=== PATIENT | female | born 2000 | race Native Hawaiian/Other Pacific Islander ===

== ENCOUNTER 2022-08-04 10:00 | Outpatient (CLI) | payer BC, SELFPAY | END 2022-08-04 10:01 | disposition home or self-care (01) | LOC: NFLDREF 10:02 | PROVIDERS: PCP Family Medicine; Visit Provider Obstetrics & Gynecology | DX: R30.0 Dysuria (principal) | CPT/HCPCS: 87086; 87186 ==

== ENCOUNTER 2022-10-24 13:41 | Outpatient (CLI) | payer BC, SELFPAY ==
[2022-10-24 15:46] LABS: Chloride* 106 mmol/L (96-114); Sodium* 141 mmol/L (135-149)
[2022-10-24 15:47] LABS: Potassium* 4.6 mmol/L (3.6-5.1)
[2022-10-24 15:49] LABS: Blood Urea Nitrogen* 13 mg/dL (5-24); Carbon Dioxide* 26 mmol/L (20-32); Creatinine* 0.7 mg/dL (0.5-1.5); Estimated Glomerular Filt Rate 127 ml/min
[2022-10-24 15:50] LABS: Calcium* 9.5 mg/dL (8.4-10.6); Glucose* 114 mg/dL (60-115)
== END 2022-10-24 13:42 | disposition home or self-care (01) ==
LOC: NFLDREF 13:43
PROVIDERS: PCP Family Medicine; Visit Provider Family Medicine
DX: E66.01 Morbid (severe) obesity due to excess calories (principal); Z68.43 Body mass index [BMI] 50.0-59.9, adult
CPT/HCPCS: 80048

== ENCOUNTER 2023-05-06 15:18 | Outpatient (CLI) | payer BC, SELFPAY ==
[2023-05-06 18:19] LABS: Chlamydia DNA Amplified* NOT DETECTED (No Detected); GC DNA Amplified* NOT DETECTED (No Detected)
== END 2023-05-06 15:19 | disposition home or self-care (01) ==
PROVIDERS: PCP Family Medicine; Visit Provider Obstetrics & Gynecology
DX: N92.0 Excessive and frequent menstruation with regular cycle (principal); N93.9 Abnormal uterine and vaginal bleeding, unspecified; Z11.3 Encounter for screening for infections with a predominantly sexual mode of transmission
CPT/HCPCS: 84443; 87491; 87591

== ENCOUNTER 2023-05-15 15:48 | Outpatient (CLI) | payer BC, SELFPAY ==
--- NOTE | 2023-05-15 16:00 | CRLHL7_ITS ---
For Patients: As a result of the Century Cures Act, medical imaging exams and procedure reports are released immediately into your electronic medical record. You may view this report before your referring provider. If you have questions, please contact your health care provider. CLINICAL HISTORY: excessive and frequent menstruation TECHNIQUE: 2D wolf scale and color Doppler images were acquired of the pelvis using a transvaginal approach. FINDINGS: On transvaginal imaging, the myometrium has a normal uniform echotexture. The uterus measures 6.3 x 3.4 x 3.5 cm. Cervical nabothian cysts noted. The endometrial lining measures 12 mm in thickness. The left ovary is not visualized and the right ovary measures 3.5 x 2.1 x 2.6 cm. The right ovary demonstrates normal arterial and venous blood flow on color Doppler analysis. There are no suspicious fluid collections within the cul-de-sac. IMPRESSION: Endometrial thickness 1.2 cm. No endometrial fluid. No uterine fibroid. Dictated by Melvin Hairston MD @ 05/18/2023 9:08:19 AM (Electronically Signed)
== END 2023-05-15 15:49 | disposition home or self-care (01) ==
PROVIDERS: PCP Family Medicine; Visit Provider Obstetrics & Gynecology
DX: N92.0 Excessive and frequent menstruation with regular cycle (principal); R93.89 Abnormal findings on diagnostic imaging of other specified body structures
CPT/HCPCS: 76830

== ENCOUNTER 2024-03-18 02:02 | Emergency (ER) | payer OTHER, SELFPAY ==
[2024-03-18 02:08] VITALS: BP 134/73; PULSE 89; RESP 16; TEMP 36.5; O2SAT 100; BMI 28.0
--- NOTE | 2024-03-18 02:27 | ED_ITS ---
HPI - Extremity Injury (Lower) General Date Seen: 03/18/24 Chief Complaint: Extremity Pain/Injury, Lower Stated Complaint: Pain- L knee Time Seen by Provider: 03/18/24 02:16 Source: patient Mode of arrival: ambulatory Limitations: no limitations History of Present Illness HPI Narrative: Patient is a 23-year-old female with history of surgery to each of her kneecaps who presents with an injury to her left knee that occurred two weeks ago. She was running up a flight of stairs and fell landing on the knee. There is initially some swelling and bruising but for several days she has been able to get by with ice and ibuprofen. Over the past 7-10 days she has had increasing locking and buckling of the knee. It is and becoming more painful to ambulate and the knee feels unstable. It continues to be swollen and tender. But she is currently uninsured but expects to get health insurance within the next couple of weeks. Related Data Home Medications ?Medication ?Instructions ?Recorded ?Confirmed albuterol sulfate 2.5 mg/3 mL 2.5 mg continuous nebulization Q4H 08/12/23 12/25/23 (0.083 %) solution for nebulization PRN bronchospasm cyanocobalamin (vitamin B-12) mcg IM 08/12/23 12/25/23 1,000 mcg/mL injection solution Previous Rx's ?Medication ?Instructions ?Recorded adapalene 0.1 % topical cream 1 applic topical QHS #45 grams 10/24/22 albuterol sulfate 90 mcg/actuation 2 puff inhalation Q4-6H PRN 10/24/22 aerosol inhaler shortness of breath or wheezing #8.5 grams albuterol sulfate 90 mcg/actuation 2 puff inhalation Q6H PRN 08/13/23 aerosol inhaler shortness of breath or wheezing #8.5 grams hydrocodone 5 mg-acetaminophen 325 1 tab PO Q6H PRN pain #10 tabs 03/18/24 mg tablet Allergies Allergy/AdvReac Type Severity Reaction Status Date / Time No Known Drug Allergies Allergy Verified 12/25/23 14:25 Review of Systems Narrative: Review of systems is outlined above otherwise noted to be negative. [facility] Medical History Cellulitis ?L03.90 - Cellulitis, unspecified (ICD-10) Mild intermittent asthma ?J45.20 - Mild intermittent asthma, uncomplicated (ICD-10) Morbid obesity with BMI of 50.0-59.9, adult ?E66.01 - Morbid (severe) obesity due to excess calories (ICD-10) ?Z68.43 - Body mass index [BMI] 50.0-59.9, adult (ICD-10) Pes planus (04/13/13) ?M21.40 - Flat foot [pes planus] (acquired), unspecified foot (ICD-10) Acne vulgaris ?L70.0 - Acne vulgaris (ICD-10) Acanthosis nigricans (07/18/13) ?L83 - Acanthosis nigricans (ICD-10) Surgical History History of sleeve gastrectomy ?Z90.3 - Acquired absence of stomach [part of] (ICD-10) History of excision of mass (04/2016) ?Z98.890 - Other specified postprocedural states (ICD-10) History of knee surgery (~08/2019) ?Z98.890 - Other specified postprocedural states (ICD-10) History of knee surgery (~04/2019) ?Z98.890 - Other specified postprocedural states (ICD-10) Family History Diabetes Father Grandfather Social History Narrative: Single, no kids, senior residential counselor Angeli Carrion, nonsmoker, no EtOH What is your current living situation?: I presently have a place to live Problems where you live: no known problems In the past 12 months, utilities in danger of being shut off: no In past 12 months, lack of transportation kept you from medical appts, meetings, work, or getting things needed for daily living: no In the past 12 mos, have been you worried that your food would run out before you had money to buy more?: never true In the past 12 mos, the food you bought just didn't last and you didn't have money to buy more?: never true Smoking Status: Never smoker How often does anyone, including family, friends and others, physically hurt you : never How often does anyone, including family, friends and others, insult or talk down to you: never How often does anyone, including family, friends and others, threaten you with harm: never How often does anyone, including family, friends and others, scream or curse at you: never Little interest or pleasure in doing things: not at all Feeling down, depressed, or hopeless: not at all Exam Narrative: Exam Narrative: Vitals noted. Examination of the left knee shows her to have a small knee effusion. She has tenderness along the medial joint line. There is tenderness with stressing of the collateral ligaments but no laxity. Anterior drawer sign does seem lacks compared to the right side and there isn't a firm endpoint. No bony tenderness over the patella or proximal tibia. Const: Vital Signs, click to edit/add: Vital Signs - 24 hr 03/18/24 02:08 Temperature 97.7 F Pulse Rate [Pulse Oximeter] 89 Respiratory Rate 16 Blood Pressure [Ri ght Upper Arm] 134/73 Pulse Oximetry 100 Oxygen Delivery Me thod Room Air Course Course ED Course: Patient is seen and examined. X-ray is ordered. Reevaluation(s) Reevaluation #1: X-ray does not show fracture or disruption of her hardware. She has an immobilizer at home that she can use. Vital Signs Vital signs: Initial Vital Signs Temperature 97.7 F 03/18/24 02:08 Temperature Source Temporal Artery Scan 03/18/24 02:08 Pulse Rate 89 03/18/24 02:08 Respiratory Rate 16 03/18/24 02:08 Blood Pressure 134/73 03/18/24 02:08 Blood Pressure Mean 93 03/18/24 02:08 Blood Pressure Position Supine 03/18/24 02:08 Pulse Oximetry 100 03/18/24 02:08 Oxygen Delivery Method Room Air 03/18/24 02:08 Vital Signs Temperature 97.7 F 03/18/24 02:08 Pulse Rate 89 03/18/24 02:08 Respiratory Rate 16 03/18/24 02:08 Blood Pressure 134/73 03/18/24 02:08 Pulse Oximetry 100 03/18/24 02:08 Oxygen Delivery Method Room Air 03/18/24 02:08 Temperature 97.7 F 03/18/24 02:08 Pulse Rate 89 03/18/24 02:08 Respiratory Rate 16 03/18/24 02:08 Blood Pressure 134/73 03/18/24 02:08 Pulse Oximetry 100 03/18/24 02:08 Oxygen Delivery Method Room Air 03/18/24 02:08 Discharge Plan Discharge Clinical Impression: Left knee injury Patient Disposition: Home, Self-Care Condition: Stable Additional Instructions: Rest, ice, elevation. Tylenol 1000 mg every 6 hours as needed for pain. Hydrocodone one pill every 6 hours for refractory pain. Knee immobilizer for stability. We your insurance has kicked in please schedule follow-up visit with your PCP to discuss scheduling an MRI. Prescriptions: New hydrocodone-acetaminophen 5-325 mg tablet 1 tab PO Q6H PRN (Reason: pain) Qty: 10 0RF No Action albuterol sulfate 90 mcg/actuation HFA aerosol inhaler 2 puff inhalation Q4-6H PRN (Reason: shortness of breath or wheezing) Qty: 8.5 5RF albuterol sulfate 2.5 mg /3 mL (0.083 %) solution for nebulization 2.5 mg continuous nebulization Q4H PRN (Reason: bronchospasm) cyanocobalamin (vitamin B-12) 1,000 mcg/mL solution IM albuterol sulfate 90 mcg/actuation HFA aerosol inhaler 2 puff inhalation Q6H PRN (Reason: shortness of breath or wheezing) Qty: 8.5 2RF adapalene 0.1 % cream 1 applic topical QHS Qty: 45 5RF Follow Up/Referrals: Melvin Solomon MD [Primary Care Provider] - Stand Alone [facility]: [facility] Info Instructions
--- NOTE | 2024-03-18 02:27 | CRLHL7_ITS ---
For Patients: As a result of the Cures Act, medical imaging exams and procedure reports are released immediately into your electronic medical record. You may view this report before your referring provider. If you have questions, please contact your health care provider. INDICATION: Trauma, fall. Left knee pain. TECHNIQUE: Left knee 3 views. COMPARISON: None. FINDINGS: No acute fracture or dislocation. Fixation of the patella with 2 partially threaded cannulated screws, without evidence of hardware complications. No significant joint effusion. Joint spaces are maintained. Mild soft tissue swelling. IMPRESSION: No acute osseous abnormality. Dictated by Michael Sierra MD @ 03/18/2024 3:26:16 AM (Electronically Signed)
--- OUTSIDE RECORDS SUMMARY | 2024-03-18 02:53 | XMS_ITS | Encounter Summary ---
Author Organization [facility] Address [address] [place] [address] Care Team Providers Care Stock Manager Name Role Phone Genaro Sandoval MD Primary Care Provider Gerardo Dickerson MD Unavailable + Will Leija Unavailable [phone] Gerardo Dickerson MD Unavailable + Reason for Visit * Reason Onset Date Comments Orders 08/31/2019 PT orders Encounter Details Date Type Department Care Team (Late st Contact Info) Description 08/31/2019 Telephone [facility] [address] [address] Gerardo Dickerson MD [address] [place] [address] Orders (PT orders) Social History Tobacco Use Types Packs/Day Years Used Date Smoking Tobacco: Never Smokeless Tobacco: Never Alcohol Use Standard Drinks/Week Comments Not Currently 0 (1 standard drink = 0.6 oz pur e alcohol) PHQ-2 Answer Date Recorded PHQ-2 Score 0 08/15/2019 Sex and Gender Information Value Date Recorded Sex Assigned at Not on file Gender Identity Not on file Sexual Orientation Not on file documented as of this encounter Miscellaneous Notes * Telephone Encounter - Omar Tejada ATC - 08/31/2019 12:21 PM CST Faxed orders over to number provided D CROP HARVEST CONTRACTOR * Telephone Encounter - Fauzia Hunter - 08/31/2019 12:12 PM CST [facility] Phone Message May a detailed message be left on voicemail: yes Reason for Call: Order(s): Other: Reason for requested: PT orders sent to [facility] fax- [phone] Date needed: jacky Provider name: Action Taken: Message routed to: [facility] ortho D CROP HARVEST CONTRACTOR documented in this encounter Plan of Treatment Not on file documented as of this encounter Visit Diagnoses Not on filedocumented in this encounter Additional Health Concerns Assessment Noted Time PHQ-9 Depression Total Score: 0 08/15/20 12:22 PM FIELD CROP HARVEST CONTRACTOR documented as of this encounter Care Teams Stock Manager Relationship Specialty Start Date End Date Genaro Sandoval MD [facility] [address] [place] [address] PCP - General 05/16/13 Gerardo Dickerson MD [facility] [address] [place] [address] Orthopedics 12/18/15 Will Leija [facility] [address] [place] [address] 12/18/15 Gerardo Dickerson MD [address] [place] [address] Assigned Musculoskeletal Provider 08/03/20 05/11/21 documented as of this encounter
--- OUTSIDE RECORDS SUMMARY | 2024-03-18 02:53 | XMS_ITS | Clinical Summary ---
Author Organization [facility] Address [address] [place] [address] Care Team Providers Care Victims Advocate Clerk/Specialist Name Role Phone Genaro Sandoval MD Primary Care Provider [phone] Gerardo Dickerson MD Unavailable + Will Leija Unavailable [phone] Allergies No known active allergies Medications Medication Sig Dispensed Refills Start Date End Date Status ALBUTEROL INHALER 17GMIndications:An xiety,Acanthosis nigricans,Eating disorder,Childhood obesity Inhale into the lungs 3 times daily This product no longer available Active acetaminophen (TYLENOL) 500 MG tabletIndications: Closed displaced fracture of left patella, unspecified fracture morphology, initial encounter Take 2 tablets (1,000 mg) by mouth 3 times daily as needed for mild pain 1 Bottle 1 02/08/2019 Active Additional Information Patient not taking.Reported on 11/09/2019 ibuprofen (ADVIL/MOTRIN) 600 MG tabletIndications: Closed displaced fracture of left patella, unspecified fracture morphology, initial encounter Take 1 tablet (600 mg) by mouth every 6 hours 40 tablet 02/08/2019 Active Additional Information Patient not taking.Reported on 11/09/2019 order for DMEIndications:Urszula sed displaced fracture of left patella, unspecified fracture morphology, initial encounter Equipment being ordered: Crutches (E0114) Treatment Diagnosis: Impaired gait 1 each 02/08/2019 Active Additional Information Patient not taking.Reported on 11/09/2019 senna-docusate (SENOKOT-S/PERICOL ROCKY) 8.6-50 MG tabletIndications: Closed displaced fracture of left patella, unspecified fracture morphology, initial encounter Take 1-2 tablets by mouth daily as needed for constipation 20 tablet 08/17/2019 Active Additional Information Patient not taking.Reported on 11/09/2019 acetaminophen (TYLENOL) 325 MG tabletIndications: Right patella fracture Take 2 tablets (650 mg) by mouth every 4 hours 120 tablet 08/17/2019 Active Additional Information Patient not taking.Reported on 11/09/2019 oxyCODONE (ROXICODONE) 5 MG tabletIndications: Right patella fracture Take 1-2 tablets (5-10 mg) by mouth every 4 hours as needed for moderate to severe pain 30 tablet 08/17/2019 Active Additional Information Patient not taking.Reported on 11/09/2019 senna-docusate (SENOKOT-S/PERICOL ROCKY) 8.6-50 MG tabletIndications: Right patella fracture Take 1-2 tablets by mouth 2 times daily 30 tablet 08/17/2019 Active Additional Information Patient not taking.Reported on 11/09/2019 ondansetron (ZOFRAN-ODT) 4 MG ODT tabIndications:Rig ht patella fracture Take 1-2 tablets (4-8 mg) by mouth every 8 hours as needed for nausea 4 tablet 08/17/2019 Active Additional Information Patient not taking.Reported on 11/09/2019 oxyCODONE (ROXICODONE) 5 MG tabletIndications: Closed displaced fracture of left patella, unspecified fracture morphology, initial encounter Take 1 tablet (5 mg) by mouth every 4 hours as needed for moderate to severe pain 30 tablet 08/24/2019 Active Additional Information Patient not taking.Reported on 11/09/2019 Active Problems Problem Noted Date Diagnosed Date Right patella fracture 08/15/2019 Overview: Added automatically from request for surgery [id number] Chronic pain of right knee 08/15/2019 Overview: Added automatically from request for surgery [id number] Patellar fracture 02/07/2019 Patella fracture 02/07/2019 Anxiety 07/18/2013 Acanthosis nigricans 07/18/2013 Eating disorder 07/18/2013 Childhood obesity 07/18/2013 Hypertriglyceridemia 07/18/2013 Lower extremity weakness 07/18/2013 Social History Tobacco Use Types Packs/Day Years Used Date Smoking Tobacco: Never Smokeless Tobacco: Never Alcohol Use Standard Drinks/Week Comments Not Currently 0 (1 standard drink = 0.6 oz pur e alcohol) PHQ-2 Answer Date Recorded PHQ-2 Score 0 11/09/2019 Sex and Gender Information Value Date Recorded Sex Assigned at Not on file Gender Identity Not on file Sexual Orientation Not on file Last Filed Vital Signs Vital Sign Reading Time Taken Comments Blood Pressure 116/66 08/17/2019 8:00 PM MANAGER [employer] Pulse 97 08/17/2019 8:00 PM [employer]GER [employer] Temperature 36.7 ??C (98.1 ??F) 08/17/2019 8:00 PM CS T Respiratory Rate 11 08/17/2019 7:15 PM [employer]GER [employer] Oxygen Saturation 97% 08/17/2019 8:00 PM MA[employer]GER [employer] Inhaled Oxygen Concentration - - Weight 130 kg (286 lb 9.6 oz) 08/17/2019 12:21 P M [employer] Height 170.2 cm (5' 7) 08/17/2019 12:21 PM [employer] Body Mass Index 44.89 08/17/2019 12:21 PM [employer] Plan of Treatment Not on file Medical Devices Implanted Type Area Parole Or Probation Officer Device Identifier Shelf Expiration Date Model / Serial / Lot Imp Scr Syn Can 4.0x34mm Short Ss Implanted:Qty: 2 on 02/07/2019 by Gerardo Dickerson MD at [facility] Metallic Hardware/An chor Left: Patella SYNTHES-STRATEC [id number] / / Synthes1.25mm Non Threaded Guide Wire Implanted:Qty: 4 on 02/07/2019 by Gerardo Dickerson MD at [facility] Left: Patella SYN[employer]ES 900.721 / / Fiber Tape, 2mm Implanted:Qty: 1 on 08/17/2019 by Gerardo Dickerson MD at [facility] Right: Patella [employer] 01/10/2024 [id number] / / [id number] - 04mm Blunt Tip Cannulated Lag Screw Implanted:Qty: 1 on 08/17/2019 by Gerardo Dickerson MD at [facility] Right: Patella [employer] [id number] 0 / / 38mm - 04mm Blunt Tip Cannulated Lag Screw Implanted:Qty: 1 on 08/17/2019 by Gerardo Dickerson MD at [facility] Right: Patella [employer] AR-[id number] 8 Care Teams Victims Advocate Clerk/Specialist Relationship Specialty Start Date End Date Genaro Sandoval MD [facility] [address] [place] [address] PCP - General 05/16/13 Gerardo Dickesron MD [facility] [address] [place] [address] Orthopedics 12/18/15 Will Leija [facility] [address] [place] [address] 12/18/15
--- OUTSIDE RECORDS SUMMARY | 2024-03-18 02:53 | XMS_ITS | Encounter Summary ---
Author Organization [facility] Address [address] [place] [address] Care Team Providers Care Elevator Examiner And Adjuster Name Role Phone Genaro Sandoval MD Primary Care Provider [phone] Gerardo Dickerson MD Unavailable + Will Leija Unavailable [phone] Gerardo Dickerson MD Unavailable + Reason for Visit * Reason Onset Date Comments *-*INCOMING RECORDS*-* 08/15/2019 Encounter Details Date Type Department Care Team (Late st Contact Info) Description 08/15/2019 PRE VISIT [facility] [address] [place] [phone] Gerardo Dickerson MD [address] [place] [address] *-*INCOMING RECORDS*-* Social History Tobacco Use Types Packs/Day Years Used Date Smoking Tobacco: Never Assessed PHQ-2 Answer Date Recorded PHQ-2 Score 0 08/15/2019 Sex and Gender Information Value Date Recorded Sex Assigned at Not on file Gender Identity Not on file Sexual Orientation Not on file documented as of this encounter Miscellaneous Notes * Telephone Encounter - Karo Briones CMA - 08/15/2019 8:50 AM CST RECORDS [facility]CEIVED FROM[facility] DATE RECEIVED: Aug 15, 2019 NOTES STATUS DETAILS OFFICE NOTE from referring provider Gerardo Johnson, MD OFFICE NOTE from other specialist N/A DISCHARGE SUMMARY from hospital N/A DISCHARGE REPORT from the ER Internal OPERATIVE REPORT N/A MEDICATION LIST Internal IMPLANT RECORD/STICKER N/A LABS CBC/DIFF N/A CULTURES N/A INJECTIONS DONE IN RADIOLOGY N/A MRI N/A CT SCAN N/A XRAYS (IMAGES & REPORTS) Internal TUMOR PATHOLOGY Slides & report N/A 08/15/19 8:51 AM Pre-visit complete Karo Briones CMA ER PARENT documented in this encounter Plan of Treatment Not on file documented as of this encounter Visit Diagnoses Not on filedocumented in this encounter Additional Health Concerns Assessment Noted Time PHQ-9 Depression Total Score: 0 08/15/20 19 12:22 PM FOSTER PARENT documented as of this encounter Care Teams Elevator Examiner And Adjuster Relationship Specialty Start Date End Date Genaro Sandoval MD [facility] [address] [place] [address] PCP - General 05/16/13 Gerardo Dickerson MD [facility] [address] [place] [address] Orthopedics 12/18/15 Will Leija [facility] [address] [place] [address] 12/18/15 Gerardo Dickerson MD [address] [place] [address] Assigned Musculoskeletal Provider 08/03/20 05/11/21 documented as of this encounter
--- OUTSIDE RECORDS SUMMARY | 2024-03-18 02:53 | XMS_ITS | Clinical Summary ---
Author Organization [facility] Address [place], [place] [address] Care Team Providers Care Manager Of Training And Development Name Role Phone None Primary Care Provider Unavailabl e Allergies No known active allergies Medications No known medications Active Problems Problem Noted Date Diagnosed Date Chronic pain of right knee 08/15/2019 Overview: Added automatically from request for surgery [id number] Fracture of patella 02/07/2019 Overview: Added automatically from request for surgery [id number] Acanthosis nigricans 07/18/2013 Anxiety 07/18/2013 Childhood obesity 07/18/2013 Eating disorder 07/18/2013 Hypertriglyceridemia 07/18/2013 Lower extremity weakness 07/18/2013 Immunizations Name Administration Dates Next Due Human Papilloma Virus Vaccine 03/30/2015 Meningococcal Vaccine (Menactra) 06/02/2014 Tdap 06/02/2014 Social History Tobacco Use Types Packs/Day Years Used Date Smoking Tobacco: Never Smokeless Tobacco: Never Alcohol Use Standard Drinks/Week Comments Not Currently 0 (1 standard drink = 0.6 oz pur e alcohol) Sex and Gender Information Value Date Recorded Sex Assigned at Not on file Gender Identity Not on file Sexual Orientation Not on file Obstetrics History Last Filed Vital Signs Vital Sign Reading Time Taken Comments Blood Pressure 165/101 05/22/2021 12:09 AM CDT Pulse 118 05/22/2021 12:09 AM CDT Temperature 37.1 ??C (98.7 ??F) 05/22/2021 12:09 AM C DT Respiratory Rate 17 05/22/2021 12:09 AM CDT Oxygen Saturation 97% 05/22/2021 12:09 AM CDT Inhaled Oxygen Concentration - - Weight 146.5 kg (323 lb) 05/22/2021 12:09 AM CDT Height 172.7 cm (5' 8) 05/22/2021 12:09 AM CDT Body Mass Index 49.11 05/22/2021 12:09 AM CDT Plan of Treatment Health Maintenance Due Date Last Done Comments Depression screening for age 12+ 2014 HPV series for age 9-26 (2 - 2-dose series) 09/29/2015 03/30/2015 HIV for age 15-65 2017 BMI (ht and wt on same day) for age 18+ 2020 Hepatitis C screening for ag e 18-79 2020 COVID-19 vaccine series (2022- season) 2023 Tetanus booster 06/02/2024 06/02/2014 Influenza for age 9-49 06/12/2024 Pap test for age 21-65 06/10/2026 06/10/2023 Meningococcal series for age 11-21 Aged Out 2013 No longer eligible based on patient's age to complete this topic Tdap Completed 06/02/2014 Pneumococcal series for age 6-64 Aged Out No longer eligible based on patient's age to complete this topic Procedures Procedure Name Priority Date/Time Associated Diagnosis Comments GROUP ACCOUNT DIRECTOR THIN PREP PAP SCREEN IMAGED Routine 06/10/2023 2:30 PM CDT from Last 3 Months or Most Recently Relevant to Health Maintenance Results * GROUP ACCOUNT DIRECTOR THIN PREP PAP SCREEN IMAGED (06/10/2023 2:30 PM CDT) Case Report Gynecologic Cytology Report ? Case: [id number] ? Authorizing Provider: ??Tran Baker MD ?? Collected: ? 06/10/2023 1430 ? Ordering Location: ? [facility] ?Received: ?06/12/2023 0914 ? First Screen: ?Svetlana Clancy ? Specimen: ?GROUP ACCOUNT DIRECTOR ThinPrep Vial Screening, Cervical ? 06/18/2023 1:24 PM CDT [facility] INTERPRETATION/ RESULT NEGATIVE FOR INTRAEPITHELIAL LESION OR MALIGNANCY (NIL) (none) 06/18/2023 1:24 PM CDT [facility] IMEN ADEQUACY Satisfactory for evaluation Endocervical component present 06/18/2023 1:24 PM CDT [facility] HPV REQUEST HPV not requested 2022 1:24 PM CDT [facility] ENTRAL LABORATORY Last Pap Date 05/06/2023 06/18/2023 1:24 PM CDT [facility]-C ENTRAL LABORATORY Last Pap Result UNS 1:24 PM CDT [facility] ENTRAL LAB[facility]ORY Abnormal Pap or [place] Bx in last 5 years No 06/18/2023 1:24 PM CDT [facility] Menstrual Status Irregular Periods 06/18/2023 1:24 PM CDT [facility] [place] Bx Done Today No 06/18/2023 1:24 PM CDT [facility] Additional Information 06/18/2023 1:24 PM CDT [facility] Comment: Interpreted at [facility] - [address], [place] [address] Automated Review Successful 06/18/2023 1:24 PM CDT [facility] Comment:Specimen processed s uccessfully by automated thread reeler device, ThinPrep Imaging System, [employer] Note The pap test is a screening technique, not a diagnostic procedure. It is used primarily to screen for squamous cancers and precursor lesions. Published studies have shown that it is subject to both false negative and false positive results. The pap test should not be used as the sole means to diagnose or exclude pre-malignant and malignant lesions. 06/18/2023 1:24 PM CDT [facility] Other (Cervical) 06/10/2023 2:30 PM CDT 06/12/2023 9:14 AM CDT Tran Baker MD PATHOLOGY/CYTOLOG Y [facility] [address] [place] [address], from Last 3 Months or Most Recently Relevant to Health Maintenance Care Teams Manager Of Training And Development Relationship Specialty Start Date End Date None . PCP - General 05/22/21
--- OUTSIDE RECORDS SUMMARY | 2024-03-18 02:53 | XMS_ITS | Referral Summary ---
Author Organization [facility] Address [address] [place] [address] Care Team Providers Care Outside Sales Engineer Name Role Phone Genaro Sandoval MD Primary Care Provider [phone] Gerardo Dickerson MD Unavailable + Will Leija Unavailable [phone] Allergies No known active allergies Medications [...] Overview: Added automatically from request for surgery [id number] Chronic pain of right knee 08/15/2019 Overview: Added automatically from request for surgery [id number] Patellar fracture 02/07/2019 Patella fracture 02/07/2019 Anxiety [...] Comments Blood Pressure 116/66 08/17/2019 8:00 PM GRAIN ELEVATOR WORKER Pulse 97 08/17/2019 8:00 PM GRAIN ELEVATOR WORKER Temperature 36.7 ??C (98.1 ??F) 08/17/2019 8:00 PM CS T Respiratory Rate 11 08/17/2019 7:15 PM GRAIN ELEVATOR WORKER Oxygen Saturation 97% 08/17/2019 8:00 PM GRAIN ELEVATOR WORKER Inhaled Oxygen Concentration - - Weight 130 kg (286 lb 9.6 oz) 08/17/2019 12:21 P M GRAIN ELEVATOR WORKER Height 170.2 cm (5' 7) 08/17/2019 12:21 PM GRAIN ELEVATOR WORKER Body Mass Index 44.89 08/17/2019 12:21 PM GRAIN ELEVATOR WORKER Plan of Treatment Not on file Medical Devices Implanted Type Area Meat Cutter Device Identifier Shelf Expiration Date Model / Serial / Lot Imp Scr Syn Can 4.0x34mm Short Ss Implanted:Qty: 2 on 02/07/2019 by Gerardo Dickerson MD at [facility] Metallic Hardware/An chor Left: Patella SYNTHES-STRATEC 207.634 / / Synthes1.25mm Non Threaded Guide Wire Implanted:Qty: 4 on 02/07/2019 by Gerardo Dickerson MD at [facility] Left: Patella SYNTHES 900.721 / / Fiber Tape, 2mm Implanted:Qty: 1 on 08/17/2019 by Gerardo Dickerson MD at [facility] Right: Patella [employer]X 01/10/2024 AR-7237-1 7LN / / [id number] 30mm - 04mm Blunt Tip Cannulated Lag Screw Implanted:Qty: 1 on 08/17/2019 by Gerardo Dickerson MD at [facility] Right: Patella ARTHREX AR-5051-3 0 / / 38mm - 04mm Blunt Tip Cannulated Lag Screw Implanted:Qty: 1 on 08/17/2019 by Gerardo Dickerson MD at [facility] Right: Patella AR[employer]REX AR-5051-3 8 Care Teams Outside Sales Engineer Relationship Specialty Start Date End Date Genaro Sandoval MD [facility] [address] [place] [address] PCP - General 05/16/13 Gerardo Dickerson MD [facility] [address] [place] [address] Orthopedics 12/18/15 Will Leija [facility] [address] [place] [address] 12/18/15
== END 2024-03-18 03:29 | disposition home or self-care (01) ==
LOC: ED 02:51
PROVIDERS: Emergency Provider Family Medicine; PCP Family Medicine
DX: M25.562 Pain in left knee (principal); W10.9XXA Fall (on) (from) unspecified stairs and steps, initial encounter
CPT/HCPCS: 73562; 99282; 99283

== ENCOUNTER 2024-09-09 11:23 | Outpatient (CLI) | payer OTHER, SELFPAY ==
--- OUTSIDE RECORDS SUMMARY | 2024-09-09 11:33 | XMS_ITS | Clinical Summary ---
Author Organization [facility] Address [place], [place] [address] Care Team Providers Care Genetic Physician Name Role Phone None Primary Care Provider Unavailabl e Allergies No known active allergies Medications No known medications Active Problems Problem Noted Date Diagnosed Date Chronic pain of right knee 08/15/2019 Overview (05/22/2021): Added automatically from request for surgery [id number] Fracture of patella 02/07/2019 Overview (05/22/2021): Added automatically from request for surgery [id number] Acanthosis nigricans 07/18/2013 Anxiety 07/18/2013 Childhood obesity [...] 118 05/22/2021 12:09 AM CDT Temperature 37.1 C (98.7 F) 05/22/2021 12:09 AM CDT Respiratory Rate 17 05/22/2021 12:09 AM CDT [...] C screening for ag e 18-79 2020 Tetanus booster 06/02/2024 06/02/2014 COVID-19 vaccine series ( season) 2024 Influenza for age 9-49 06/12/2024 Pap test for age 21-65 06/10/2026 06/10/2023 Tdap Completed 06/02/2014 Pneumococcal series for age 6-64 Aged Out No longer eligible based on patient's age to complete this topic Procedures Procedure Name Priority Date/Time Associated Diagnosis Comments SKIDWAY WORKER THIN PREP PAP SCREEN IMAGED Routine 06/10/2023 2:30 PM CDT from Last 3 Months or Most Recently Relevant to Health Maintenance Results * SKIDWAY WORKER THIN PREP PAP SCREEN IMAGED (06/10/2023 2:30 PM CDT) Case Report Gynecologic Cytology Report Case: [id number] Authorizing Provider: Tran Baker MD Collected: 06/10/2023 1430 Ordering Location: [facility] Received: 06/12/2023 0914 First Screen: Svetlana Clancy Specimen: SKIDWAY WORKER ThinPrep Vial Screening, Cervical 06/18/2023 1:24 PM CDT [facility]ATORY INTERPRETATION/ RESULT NEGATIVE FOR INTRAEPITHELIAL LESION OR MALIGNANCY (NIL) (none) 06/18/2023 1:24 PM CDT [facility] IMEN ADEQUACY Satisfactory for evaluation Endocervical component present 06/18/2023 1:24 PM CDT [facility] HPV REQUEST HPV not requested 2022 1:24 PM CDT [facility] Last Pap Date 05/06/2023 06/18/2023 1:24 PM CDT [facility] Last Pap Result UNS 1:24 PM CDT [facility] Abnormal Pap or [place] Bx in last 5 years No 06/18/2023 1:24 PM CDT [facility] Menstrual Status Irregular Periods 06/18/2023 1:24 PM CDT [facility] [place] Bx Done Today No 06/18/2023 1:24 PM CDT [facility] Additional Information 06/18/2023 1:24 PM CDT [facility] Comment: Interpreted at [facility] - [address] [place] [address] Automated Review Successful 06/18/2023 1:24 PM CDT [facility] Comment:Specimen processed s uccessfully by automated storage engineer device, ThinPrep Imaging System, [employer] Note The pap test is a [...] and malignant lesions. 06/18/2023 1:24 PM CDT [facility] Other (Cervical) 06/10/2023 2:30 PM CDT 06/12/2023 9:14 AM CDT Tran Baker MD PATHOLOGY/CYTOLOG Y [facility]-C[facility]AL LABORATORY [address] [place] [address], from Last 3 Months or Most Recently Relevant to Health Maintenance Care Teams Genetic Physician Relationship Specialty Start Date End Date None . PCP - General 05/22/21
--- OUTSIDE RECORDS SUMMARY | 2024-09-09 11:34 | XMS_ITS | Encounter Summary ---
Author Organization [facility] Address [address] [place] [address] Care Team Providers Care Meat Carrier Name Role Phone Genaro Sandoval MD Primary Care Provider [phone] Gerardo Dickerson MD Unavailable + Will Leija MD Unavailable [phone] Gerardo Dickerson MD Unavailable + Reason for Visit * Reason Onset Date Comments *-*INCOMING RECORDS*-* 08/15/2019 Encounter Details Date Type Department Care Team (Late st Contact Info) Description 08/15/2019 PRE VISIT [facility] [address] [address] Gerardo Dickerson MD [address] [place] [address] *-*INCOMING RECORDS*-* Social History Tobacco Use Types Packs/Day Years Used Date Smoking Tobacco: Never Assessed PHQ-2 Answer Date Recorded PHQ-2 Score 0 08/15/2019 Comments No Sex and Gender Information Value Date Recorded Sex Assigned at Not on file Legal Sex Female 8:41 AM CDT Gender Identity Not on file Sexual Orientation Not on file documented as of this encounter Miscellaneous Notes * Telephone Encounter - Karo Briones CMA - 08/15/2019 8:50 AM CST RECORDS RECEIVED FROM: [facility] DATE RECEIVED: Aug 15, 2019 NOTES STATUS DETAILS OFFICE NOTE from referring provider Internal Gerardo Mallory MD OFFICE NOTE from other specialist N/A DISCHARGE SUMMARY from hospital N/A DISCHARGE REPORT from the ER Internal OPERATIVE REPORT N/A MEDICATION LIST Internal IMPLANT RECORD/STICKER N/A LABS CBC/DIFF N/A CULTURES N/A INJECTIONS DONE IN RADIOLOGY N/A MRI N/A CT SCAN N/A XRAYS (IMAGES & REPORTS) Internal TUMOR PATHOLOGY Slides & report N/A 08/15/19 8:51 AM Pre-visit complete Karo Briones CMA UIT BREAKER MECHANIC documented in this encounter Plan of Treatment Not on file documented as of this encounter Visit Diagnoses Not on filedocumented in this encounter Additional Health Concerns Assessment Noted Time PHQ-9 Depression Total Score: 0 08/15/20 19 12:22 PM CIRCUIT BREAKER MECHANIC documented as of this encounter Care Teams Meat Carrier Relationship Specialty Start Date End Date Genaro Sandoval MD [facility] [address] [place] [address] PCP - General 05/16/13 Gerardo Dickerson MD [facility] [address] [place] [address] Orthopedics 12/18/15 Will Leija MD [facility] [address] [place] [address] 12/18/15 Gerardo Dickerson MD [address] [address] Assigned Musculoskeletal Provider 08/03/20 05/11/21 documented as of this encounter
--- OUTSIDE RECORDS SUMMARY | 2024-09-09 11:34 | XMS_ITS | Encounter Summary ---
Author Organization [facility] Address [address] [place] [address] Care Team Providers Care Oil Field Laborer Name Role Phone Genaro Sandoval MD Primary Care Provider [phone] Gerardo Dickerson MD Unavailable + Will Lieja MD Unavailable [phone] Gerardo Dickerson MD Unavailable + Reason for Visit * Reason Onset Date Comments Orders 08/31/2019 PT orders Encounter Details Date Type Department Care Team (Late st Contact Info) Description 08/31/2019 Telephone [facility] [address] [address] Gerardo Dickerson MD [address] [place] [address] Orders (PT orders) Social History [...] CST Faxed orders over to number provided PUNCH AND COILER OPERATOR * Telephone Encounter - Fauzia Hunter - 08/31/2019 12:12 PM CST [facility] Phone Message May a detailed message be left on voicemail: yes Reason for Call: Order(s): Other: Reason for requested: PT orders sent to [facility] fax- [phone] Date needed: jacky Provider name: Action Taken: Message routed to: [facility] ortho PUNCH AND COILER OPERATOR documented in this encounter Plan of Treatment Not on file documented as of this encounter Visit Diagnoses Not on filedocumented in this encounter Additional Health Concerns Assessment Noted Time PHQ-9 Depression Total Score: 0 08/15/20 19 12:22 PM HOOP PUNCH AND COILER OPERATOR documented as of this encounter Care Teams Oil Field Laborer Relationship Specialty Start Date End Date AmGenaro rojas MD [facility] [address] [place] [address] PCP - General 05/16/13 Gerardo Dickerson MD [facility] [address] [place] [address] Orthopedics 12/18/15 Will Leija MD [facility] [address] [place] [address] 12/18/15 Gerardo Dickerson MD [address] [place] [address] Assigned Musculoskeletal Provider 08/03/20 05/11/21 documented as of this encounter
--- OUTSIDE RECORDS SUMMARY | 2024-09-09 11:34 | XMS_ITS | Clinical Summary ---
Author Organization [facility] Address [address] [place] [address] Care Team Providers Care General Magistrate Name Role Phone Genaro Sandoval MD Primary Care Provider [phone] Gerardo Dickerson MD Unavailable + Will Leija MD Unavailable [phone] Allergies No known active allergies Medications ALBUTEROL INHALER 17GMIndications :Anxiety,Acanth osis nigricans,Eatin g disorder,Childh ood obesity Inhale into the lungs 3 times daily This product no longer available Active acetaminophen (TYLENOL) 500 MG tabletIndicatio ns:Closed displaced fracture of left patella, unspecified fracture morphology, initial encounter Take 2 tablets (1,000 mg) by mouth 3 times daily as needed for mild pain 1 Bottle 1 9 Active Additional Information Patient not taking.Reported on 11/09/2019 ibuprofen (ADVIL/MOTRIN) 600 MG tabletIndicatio ns:Closed displaced fracture of left patella, unspecified fracture morphology, initial encounter Take 1 tablet (600 mg) by mouth every 6 hours 40 tablet 9 Active Additional Information Patient not taking.Reported on 11/09/2019 order for DMEIndications: Closed displaced fracture of left patella, unspecified fracture morphology, initial encounter Equipment being ordered: Crutches (E0114) Treatment Diagnosis: Impaired gait 1 each 9 Active Additional Information Patient not taking.Reported on 11/09/2019 senna-docusate (SENOKOT-S/SUSHANT COLACE) 8.6-50 MG tabletIndicatio ns:Closed displaced fracture of left patella, unspecified fracture morphology, initial encounter Take 1-2 tablets by mouth daily as needed for constipation 20 tablet 9 Active Additional Information Patient not taking.Reported on 11/09/2019 acetaminophen (TYLENOL) 325 MG tabletIndicatio ns:Right patella fracture Take 2 tablets (650 mg) by mouth every 4 hours 120 tablet 9 Active Additional Information Patient not taking.Reported on 11/09/2019 oxyCODONE (ROXICODONE) 5 MG tabletIndicatio ns:Right patella fracture Take 1-2 tablets (5-10 mg) by mouth every 4 hours as needed for moderate to severe pain 30 tablet 9 Active Additional Information Patient not taking.Reported on 11/09/2019 senna-docusate (SENOKOT-S/SUSHANT COLACE) 8.6-50 MG tabletIndicatio ns:Right patella fracture Take 1-2 tablets by mouth 2 times daily 30 tablet 9 Active Additional Information Patient not taking.Reported on 11/09/2019 ondansetron (ZOFRAN-ODT) 4 MG ODT tabIndications: Right patella fracture Take 1-2 tablets (4-8 mg) by mouth every 8 hours as needed for nausea 4 tablet 9 Active Additional Information Patient not taking.Reported on 11/09/2019 oxyCODONE (ROXICODONE) 5 MG tabletIndicatio ns:Closed displaced fracture of left patella, unspecified fracture morphology, initial encounter Take 1 tablet (5 mg) by mouth every 4 hours as needed for moderate to severe pain 30 tablet 9 Active Additional Information Patient not taking.Reported on 11/09/2019 Active Problems Problem Noted Date Diagnosed Date Right patella fracture 08/15/2019 Overview (08/15/2019): Added automatically from request for surgery [id number] Chronic pain of right knee 08/15/2019 Overview (08/15/2019): Added automatically from request for surgery [id number] Patellar fracture 02/07/2019 Patella fracture 02/07/2019 Anxiety 07/18/2013 Acanthosis nigricans 07/18/2013 Eating disorder 07/18/2013 Childhood obesity 07/18/2013 Hypertriglyceridemia 07/18/2013 Lower extremity weakness 07/18/2013 Social History Tobacco Use Types Packs/Day Years Used Date Smoking Tobacco: Never Smokeless Tobacco: Never Alcohol Use Standard Drinks/Week Comments Not Currently 0 (1 standard drink = 0.6 oz pur e alcohol) PHQ-2 Answer Date Recorded PHQ-2 Score 0 11/09/2019 Comments No Sex and Gender Information Value Date Recorded Sex Assigned at Not on file Legal Sex Female 8:41 AM CDT Gender Identity Not on file Sexual Orientation Not on file Last Filed Vital Signs Vital Sign Reading Time Taken Comments Blood Pressure 116/66 08/17/2019 8:00 PM LAUNDRY ATTENDANT Pulse 97 08/17/2019 8:00 PM LAUNDRY ATTENDANT Temperature 36.7 C (98.1 F) 08/17/2019 8:00 PM LAUNDRY ATTENDANT Respiratory Rate 11 08/17/2019 7:15 PM LAUNDRY ATTENDANT Oxygen Saturation 97% 08/17/2019 8:00 PM LAUNDRY ATTENDANT Inhaled Oxygen Concentration - - Weight 130 kg (286 lb 9.6 oz) 08/17/2019 12:21 P M LAUNDRY ATTENDANT Height 170.2 cm (5' 7) 08/17/2019 12:21 PM LAUNDRY ATTENDANT Body Mass Index 44.89 08/17/2019 12:21 PM LAUNDRY ATTENDANT Plan of Treatment Not on file Medical Devices Implanted Type Area Leather Softener Device Identifier Shelf Expiration Date Model / Serial / Lot Imp Scr Syn Can 4.0x34mm Short Ss Implanted:Qty: 2 on 02/07/2019 by Gerardo Dickerson MD at [facility] Metallic Hardware/An chor Left: Patella [employer]AT[employer] 207.634 / / Synthes1.25mm Non Threaded Guide Wire Implanted:Qty: 4 on 02/07/2019 by Gerardo Dickerson MD at [facility] Left: Patella SYNTHES 900.721 / / Fiber Tape, 2mm Implanted:Qty: 1 on 08/17/2019 by Gerardo Dickerson MD at [facility] Right: Patella [employer] 01/10/2024 AR-7237-1 7LN / / [id number] 30mm - 04mm Blunt Tip Cannulated Lag Screw Implanted:Qty: 1 on 08/17/2019 by Gerardo Dickerson MD at [facility] Right: Patella AR[employer]X AR-5051-3 0 / / 38mm - 04mm Blunt Tip Cannulated Lag Screw Implanted:Qty: 1 on 08/17/2019 by Gerardo Dickerson MD at [facility] Right: Patella AR[employer] AR-5051-3 8 / / Care Teams General Magistrate Relationship Specialty Start Date End Date Genaro Sandoval MD [address] [address] PCP - General 05/16/13 Gerardo Dickerson MD [address] [address] Orthopedics 12/18/15 Will Leija MD [facility] [address] [place] [address] 12/18/15
--- OUTSIDE RECORDS SUMMARY | 2024-09-09 11:34 | XMS_ITS | Referral Summary ---
Author Organization [facility] Address [address] [place] [id number] Care Team Providers Care Pattern Grader Supervisor Name Role Phone Genaro Sandoval MD Primary Care Provider [phone] Gerardo Dickerson MD Unavailable + Will Leija MD Unavailable Allergies No known active allergies Medications ALBUTEROL [...] (08/15/2019): Added automatically from request for surgery [id number] Chronic pain of right knee 08/15/2019 Overview (08/15/2019): Added automatically from request for surgery [id number] Patellar fracture 02/07/2019 Patella fracture 02/07/2019 Anxiety [...] Comments Blood Pressure 116/66 08/17/2019 8:00 PM NUTRITION COUNSELOR Pulse 97 08/17/2019 8:00 PM NUTRITION COUNSELOR Temperature 36.7 C (98.1 F) 08/17/2019 8:00 PM NUTRITION COUNSELOR Respiratory Rate 11 08/17/2019 7:15 PM NUTRITION COUNSELOR Oxygen Saturation 97% 08/17/2019 8:00 PM NUTRITION COUNSELOR Inhaled Oxygen Concentration - - Weight 130 kg (286 lb 9.6 oz) 08/17/2019 12:21 P M NUTRITION COUNSELOR Height 170.2 cm (5' 7) 08/17/2019 12:21 PM NUTRITION COUNSELOR Body Mass Index 44.89 08/17/2019 12:21 PM NUTRITION COUNSELOR Plan of Treatment Not on file Medical Devices Implanted Type Area Retail Wireless Sales Representative Device Identifier Shelf Expiration Date Model / Serial / Lot Imp Scr Syn Can 4.0x34mm Short Ss Implanted:Qty: 2 on 02/07/2019 by Gerardo Dickerson MD at [facility] Metallic Hardware/An chor Left: Patella [employer]AT[employer] 207.634 / / Synthes1.25mm Non Threaded Guide Wire Implanted:Qty: 4 on 02/07/2019 by Gerardo Dickerson MD at [facility] Left: Patella [employer] 900.721 / / Fiber Tape, 2mm Implanted:Qty: 1 on 08/17/2019 by Gerardo Dickerson MD at [facility] Right: Patella [employer] 01/10/2024 AR-7237-1 7LN / / [id number] 30mm - 04mm Blunt Tip Cannulated Lag Screw Implanted:Qty: 1 on 08/17/2019 by Gerardo Dickerson MD at [facility] Right: Patella [employer] AR-5051-3 0 / / 38mm - 04mm Blunt Tip Cannulated Lag Screw Implanted:Qty: 1 on 08/17/2019 by Gerardo Dickerson MD at [facility] Right: Patella [employer] AR-5051-3 8 / / Care Teams Pattern Grader Supervisor Relationship Specialty Start Date End Date Genaro Sandoval MD [address] [id number] PCP - General 05/16/13 Gerardo Dickerson MD [address] [address] Orthopedics 12/18/15 Will Leija MD [facility] [address] [place] [address] 12/18/15
== END 2024-09-09 11:24 | disposition home or self-care (01) ==
PROVIDERS: PCP Family Medicine; Visit Provider Registered Nurse
DX: D50.9 Iron deficiency anemia, unspecified (principal); R53.83 Other fatigue; R20.2 Paresthesia of skin
CPT/HCPCS: 80053; 82306; 82607; 82728; 83540; 83550; 84443; 86803; 87340